=== PATIENT | female | born 1940 | race Caucasian/White ===

== ENCOUNTER 2018-01-08 19:24 | Inpatient (IN) | payer MEDICARE ==
[2018-01-08] MEDS ORDERED: NITROGLYCERIN 0.4 MG TAB SL PRN (19:42)
[2018-01-08] MEDS ORDERED: ASPIRIN 81 MG CHEWABLE CTB PO STA (19:42)
[2018-01-08] MEDS: SODIUM CHLORIDE 0.9% FLUSH 10 ML SOL IV PRN (19:45)
[2018-01-08] MEDS ORDERED: DILTIAZEM 5 MG/ML SOL IV ONE ×3 (19:45→19:49)
[2018-01-08 19:47] LABS: BASOPHILS % (AUTO) 2 % (0-3); EOSINOPHILS % (AUTO) 1 % (0-9); HEMATOCRIT 35 % (35-47); HEMOGLOBIN 11.7 gm/dl (12.0-15.5); LYMPHOCYTES % (AUTO) 19.4 % (10-50); MEAN CORPUSCULAR HEMOGLOBIN 27.7 pg (27.0-32.0); MEAN CORPUSCULAR HGB CONC 32.9 gm/dl (32.0-36.0); MEAN CORPUSCULAR VOLUME 84 fL (81-99); MONOCYTES % (AUTO) 9.3 % (0-12); NEUTROPHILS % (AUTO) 68.7 % (37-80)
[2018-01-08] MEDS ORDERED: FUROSEMIDE 40 MG SOL ONE (19:55)
[2018-01-08] MEDS ORDERED: FUROSEMIDE 40 MG SOL IV ONE (19:58)
[2018-01-08 19:59] LABS: INR 1.1 (0.86-1.12)
[2018-01-08] MEDS: DILTIAZEM 5 MG/ML 125 MG in SODIUM CHLORIDE 0.9% 100 ML 100 ML IV SCH (20:05)
[2018-01-08 20:09] VITALS: TEMP 98.1
[2018-01-08 20:09] LABS: ALBUMIN 2.9 gm/dl (3.4-5.0); ALKALINE PHOSPHATASE 112 IU/L (46-116); ALT 28 IU/L (14-63); AST 24 IU/L (15-37); BILIRUBIN,TOTAL 0.8 mg/dl (0.2-1.0); BLOOD UREA NITROGEN 36 mg/dl (7-18); CALCIUM 9.4 mg/dl (8.5-10.1); CARBON DIOXIDE 24.3 mEq/L (21-32); CHLORIDE 106 mMol/L (98-107); CREATININE 1.45 mg/dl (0.60-1.00); GLOM FILT RATE 35 mL/min (>60); GLUCOSE 129 mg/dl (74-106); POTASSIUM 4.5 mMol/L (3.5-5.1); SODIUM 139 mMol/L (136-145); TOTAL PROTEIN 6.7 gm/dl (6.4-8.2); TROP I < 0.017 ng/ml (0.000-0.056)
[2018-01-08] MEDS ORDERED: ENOXAPARIN 40 MG SOL SC SCH ×2 (20:15→21:00)
[2018-01-08] MEDS ORDERED: ENOXAPARIN 60 MG SOL SC ONE (21:08)
[2018-01-08] MEDS ORDERED: WARFARIN SODIUM 5 MG TAB ONE (21:08)
[2018-01-08] MEDS: WARFARIN SODIUM 2.5 MG TAB PO SCH (21:47)
[2018-01-08] MEDS: POTASSIUM CHLORIDE 10 MEQ TER PO SCH (21:47)
[2018-01-09] MEDS: FUROSEMIDE 40 MG SOL IV SCH ×2 (01:59→08:13)
[2018-01-09] MEDS: SODIUM CHLORIDE 0.9% FLUSH 10 ML SOL IV PRN (01:59)
[2018-01-09] MEDS: DILTIAZEM 5 MG/ML 125 MG in SODIUM CHLORIDE 0.9% 100 ML 100 ML IV SCH (04:57)
[2018-01-09 08:05] LABS: CALCIUM 9.6 mg/dl (8.5-10.1); CREATININE 1.58 mg/dl (0.60-1.00)
[2018-01-09 08:09] LABS: MAGNESIUM 1.8 mg/dl (1.8-2.4); TROP I < 0.017 ng/ml (0.000-0.056)
[2018-01-09] MEDS: POTASSIUM CHLORIDE 10 MEQ TER PO SCH (08:13)
[2018-01-09 08:15] LABS: BASOPHILS % (AUTO) 2 % (0-3); EOSINOPHILS % (AUTO) 1 % (0-9); HEMATOCRIT 34 % (35-47); INR 1.11 (0.86-1.12); LYMPHOCYTES % (AUTO) 16.7 % (10-50); MEAN CORPUSCULAR HEMOGLOBIN 27.7 pg (27.0-32.0); MEAN CORPUSCULAR HGB CONC 32.8 gm/dl (32.0-36.0); MEAN CORPUSCULAR VOLUME 84 fL (81-99); MONOCYTES % (AUTO) 7.1 % (0-12); NEUTROPHILS % (AUTO) 72.9 % (37-80)
[2018-01-09 08:44] LABS: APPEARANCE,URINE Slightly Cloudy; BILIRUBIN,URINE NEGATIVE (NEGATIVE); COLOR,URINE Yellow; GLUCOSE, URINE (UA) NEGATIVE (NEGATIVE); KETONES,URINE NEGATIVE (NEGATIVE); LEUKOCYTE ESTERASE ,URINE NEGATIVE (NEGATIVE); NITRATE,URINE NEGATIVE (NEGATIVE); OCCULT BLOOD,URINE TRACE INTACT (NEG-TRACE); UROBILINOGEN,URINE 0.2 (0.2-1.0 EU)
[2018-01-09] MEDS ORDERED: LISINOPRIL 5 MG TAB PO SCH ×2 (09:00→13:20)
[2018-01-09] MEDS ORDERED: ENOXAPARIN 60 MG SOL SC SCH (09:00)
[2018-01-09 09:16] LABS: BACTERIA 1+ (< 1+); CRYSTALS NEGATIVE (0-3 AVE/HPF); EPITHELIAL CELLS 0-2 (SQUAMOUS); RBC,URINE 0-3 (0-3AV/HPF); WBC,URINE 0-2 (0-5AV/HPF)
[2018-01-09] MEDS: PROPRANOLOL HYDROCHLORIDE 20 MG TAB PO SCH ×2 (12:01→12:10)
[2018-01-09 12:21] VITALS: RESP 26
[2018-01-09] MEDS ORDERED: SODIUM CHLORIDE 0.9% 500 ML 500 ML IV ONE (13:01)
[2018-01-09] MEDS ORDERED: SODIUM CHLORIDE 0.9% 500 ML 500 ML IV SCH (14:00)
[2018-01-09] MEDS ORDERED: PROPRANOLOL HYDROCHLORIDE 20 MG TAB PO SCH ×2 (14:00)
[2018-01-09] MEDS: WARFARIN SODIUM 2.5 MG TAB PO SCH (17:11)
[2018-01-09 17:14] LABS: CALCIUM 8.9 mg/dl (8.5-10.1); CARBON DIOXIDE 24.3 mEq/L (21-32)
[2018-01-09] MEDS ORDERED: CALCIUM GLUCONATE 10% 1,000 MG in SODIUM CHLORIDE 0.9% 100 ML 100 ML IV ONE (17:36)
[2018-01-09] MEDS ORDERED: SODIUM POLYSTYRENE SULFONATE 15 GM/60 ML SUS PO ONE (17:38)
[2018-01-09] MEDS ORDERED: INSULIN HUMAN REGULAR 100 U/ML SOL IV ONE (17:39)
[2018-01-09] MEDS ORDERED: DEXTROSE 50% 1 VIAL SOL IV ONE ×2 (17:40→17:53)
[2018-01-09] MEDS ORDERED: SODIUM POLYSTYRENE SULFONATE 15 GM/60 ML SUS ONE (17:46)
[2018-01-09] MEDS ORDERED: INSULIN HUMAN REGULAR 100 U/ML SOL ONE (17:47)
[2018-01-09] MEDS ORDERED: CALCIUM GLUCONATE 10% 100 MG/ML SOL IV ONE (17:48)
[2018-01-09 19:02] VITALS: BP 127/80; PULSE 70; O2SAT 95
[2018-01-10] MEDS ORDERED: FUROSEMIDE 40 MG SOL IV SCH (09:00)
[2018-01-10] MEDS ORDERED: PANTOPRAZOLE SODIUM 40 MG/10 ML PDS IV SCH (09:00)
[2018-01-10] MEDS ORDERED: POTASSIUM CHLORIDE 10 MEQ TER PO SCH (09:00)
== END 2018-01-09 18:40 | disposition short-term general hospital (02) | DRG 309 ==
LOC: ED 19:24 → UNDOADMIN 20:18 → ACUTE CARE 20:18
PROVIDERS: ADMIT Family Medicine; ATTEND Family Medicine
DX: I48.91 Unspecified atrial fibrillation (principal); J90 Pleural effusion, not elsewhere classified; I49.01 Ventricular fibrillation; E11.9 Type 2 diabetes mellitus without complications; S37.009A Unspecified injury of unspecified kidney, initial encounter; E87.5 Hyperkalemia; I50.9 Heart failure, unspecified; N28.9 Disorder of kidney and ureter, unspecified; Z79.01 Long term (current) use of anticoagulants; R06.02 Shortness of breath; E05.90 Thyrotoxicosis, unspecified without thyrotoxic crisis or storm
CPT/HCPCS: 36415; 71045; 80048; 80053; 81001; 82962; 83036; 83735; 83880; 84443; 84484; 85025; 85610; 85730; 93005; 93012; 96365; 96374; 96375; 99070; 99222; 99238; 99285; J0610; J1650; J1815; J1940; A9270-GY; J3490

== ENCOUNTER 2018-03-23 12:43 | Emergency (ER) | payer MEDICARE ==
[2018-03-23 12:56] VITALS: TEMP 97.8
[2018-03-23 13:27] LABS: BASOPHILS % (AUTO) 1 % (0-3); EOSINOPHILS % (AUTO) 1 % (0-9); HEMATOCRIT 48 % (35-47); HEMOGLOBIN 14.9 gm/dl (12.0-15.5); LYMPHOCYTES % (AUTO) 14.2 % (10-50); MEAN CORPUSCULAR HEMOGLOBIN 27.6 pg (27.0-32.0); MEAN CORPUSCULAR HGB CONC 31.2 gm/dl (32.0-36.0); MEAN CORPUSCULAR VOLUME 88 fL (81-99); MONOCYTES % (AUTO) 4.7 % (0-12)
[2018-03-23 13:33] LABS: INR 1.7 (0.86-1.12)
[2018-03-23 13:39] LABS: BILIRUBIN,TOTAL 0.8 mg/dl (0.2-1.0); CALCIUM 8.4 mg/dl (8.5-10.1); CREATININE 1.87 mg/dl (0.60-1.00); POTASSIUM 4.4 mMol/L (3.5-5.1); TOTAL PROTEIN 7.5 gm/dl (6.4-8.2)
[2018-03-23 13:46] VITALS: BP 194/92; PULSE 66; RESP 26; O2SAT 98
[2018-03-23 13:47] LABS: CARBON DIOXIDE 36.9 mEq/L (21-32)
== END 2018-03-23 14:07 | disposition short-term general hospital (02) | DRG 293 ==
LOC: ED 12:43
DX: I50.9 Heart failure, unspecified (principal); I48.91 Unspecified atrial fibrillation
CPT/HCPCS: 36415; 80053; 85025; 85610; 99283; 99284